=== PATIENT | female | born 1980 | race Caucasian/White ===

== ENCOUNTER 2017-01-05 13:36 | Emergency (ER) | payer BC ==
[2017-01-05] MEDS ORDERED: Sodium Chloride 0.9% 10 ML Syringe FLUSH PRN (13:58)
[2017-01-05] MEDS ORDERED: Sodium Chloride 0.9% 1,000 ML IV SCH (14:00)
[2017-01-05 14:57] LABS: CHLORIDE,CL 109 mmol/L (98-107); SODIUM,NA 141 mmol/L (136-145)
[2017-01-05 21:46] VITALS: BP 147/80
--- NOTE | 2017-01-08 08:15 | ER ---
Date of Service: 01/05/2017 SUBJECTIVE: Mercy presents to the emergency room with complaints of bleeding. She states that she underwent a scheduled approximately 20 days prior to coming to the emergency room. She states that today she had presence of some dark colored bleeding. She states that she almost completely saturated 2 pads over an hour or two. She subsequently went to the bathroom and noted some bleeding with some bright red blood as well and some clots in the toilet. She states that since she arrived to the emergency room she has not had any further bleeding. She states that she is not experiencing any shortness of breath or lightheadedness; however, she states that she did feel quite anxious when this initially happened. The patient states that she is not experiencing any nausea or vomiting. Again, she is not experiencing any significant abdominal discomfort. PAST MEDICAL HISTORY: 2, para 2, scheduled on 12/18/2016. REVIEW OF SYSTEMS: Constitutional: Denies any fever or chills. HEENT: No sore throat, rhinorrhea, or congestion. Respiratory: No shortness breath. Cardiac: Denies any substernal chest pain. No jaw, arm, neck, or back pain. GI: No nausea, vomiting, or diarrhea. No melena, hematochezia, or hematemesis. : Denies any dysuria. She again has had saturated 2 pads and has had some blood also in the toilet with clots; however, she is not currently actively bleeding. She states that the blood in the toilet was dark red. Neurologic: At the time of questioning, she stated she did feel mildly dizzy, but states that this is improving. PHYSICAL EXAMINATION: General: This is a 36-year-old female patient, who is in no acute distress. Vital Signs: Blood pressure is 147/80, pulse rate is 73, temperature is 37.4, respiratory rate 16, and O2 saturations 94%. Skin: Warm, pink, and dry. HEENT: Mouth, oral mucosa is moist. Lungs: Clear to auscultation. Heart: Regular rate and rhythm. Abdomen: Soft, nontender. There are no hepatosplenomegaly or masses noted. Genitourinary: No active vaginal bleeding noted. Extremities: Without edema. Neurologic: She is alert, oriented. Answers all questions appropriately. Her speech is fluent. Her gait is within normal limits. LABORATORY DATA: WBCs 6.4, hemoglobin is 11.5, and platelets are 258. Coags: PT is 9.5, INR is 0.8. Chemistry: Sodium is 141, potassium is 3.9, chloride is 109, bicarb is 25, BUN is 11, creatinine is 0.7, GFR is greater than 60, glucose is 81, calcium is 8.4, and corrected calcium is 9.04. Total bilirubin is 0.2, AST is 8, ALT is 21, alkaline phosphatase is 59, C-reactive protein is less than 0.2, total protein is 6.3, and albumin is 3.2. EMERGENCY ROOM COURSE: IV access was established. She was given a liter of normal saline IV. She remained hemodynamically stable during her stay here in the emergency room. ASSESSMENT: bleeding. PLAN: I did contact [facility] and spoke with the coke crane operator on-call, who is Dr. Perez. She stated that as the patient was not currently experiencing any active bleeding, we could watch the patient and see how she does. Certainly, if she develops any estuardo bleeding, particularly that is bright red in color, she should return to the emergency room to be evaluated. All questions were answered. MWK: 01/06/2017 02:27:46 MODL: 01/06/2017 06:49:38 /[id number]
== END 2017-01-05 15:50 | disposition home or self-care (01) ==
LOC: VM.ED 13:36
DX: O72.1 Other immediate postpartum hemorrhage (principal); Z98.890 Other specified postprocedural states
CPT/HCPCS: 36415; 80053; 85025; 85610; 86140; 96360; 96361; 99283; J7030